=== PATIENT | male | born 1965 | race Caucasian/White ===

== ENCOUNTER 2023-11-05 13:18 | Outpatient (CLI) | payer OTHER, SELFPAY ==
--- NOTE | ~2023-11-05 | XR_ITS ---
EXAM: XR lumbar spine 2-3V DATE: 11/05/2023 14:11 HISTORY: Radiculopathy . COMPARISON: 10/11/2017. FINDINGS: 5 nonrib-bearing lumbar-type vertebral bodies. Pedicles intact. Normal vertebral body alig nment. Vertebral body heights preserved. Mild disc space narrowing at L3-4 through L5-S1. Marginal os teophytosis at all lumbar levels. Moderate facet hypertrophy and sclerosis at all levels. No fracture or dislocation. IMPRESSION: Multilevel mild degenerative disc disease, slightly worse than in the prior study. Modera te multilevel facet arthropathy also demonstrating mild interval progression. Reviewed, dictated and finalized at location K. MOBILE PAINTER IMPRESSION: Multilevel mild degenerative disc disease, slightly worse than in t he prior study. Moderate multilevel facet arthropathy also demonstrating mild i nterval progression.
== END 2023-11-05 13:19 ==
LOC: MICIMG 13:21
PROVIDERS: PCP Physician Assistant; Visit Provider Physician Assistant
DX: M51.36 Other intervertebral disc degeneration, lumbar region (principal); M47.816 Spondylosis without myelopathy or radiculopathy, lumbar region
CPT/HCPCS: 72100

== ENCOUNTER 2024-12-13 13:27 | Outpatient (CLI) | payer OTHER, SELFPAY ==
--- OUTSIDE RECORDS SUMMARY | 2024-12-13 14:03 | XMS_ITS | Clinical Summary ---
Author Organization [facility] Address [address] [place] [address]. [place] [address] [place] [address] Care Team Providers Care Remnants Cutter Name Role Phone Unavailable Primary Care Provider Unavailabl e Social History Tobacco Use Types Packs/Day Years Used Date Smoking Tobacco: Never Assessed Sex and Gender Information Value Date Recorded Sex Assigned at Not on file Legal Sex Male 5:58 PM CDT Gender Identity Not on file Sexual Orientation Not on file Last Filed Vital Signs Vital Sign Reading Time Taken Comments Blood Pressure 112/70 10/12/2017 2:20 PM INSTRUMENT MAKER Pulse 56 04/15/2016 4:06 PM CDT Temperature - - Respiratory Rate - - Oxygen Saturation - - Inhaled Oxygen Concentration - - Weight 64 kg (141 lb) 10/12/2017 2:20 PM INSTRUMENT MAKER Height 170.2 cm (5' 7 ) 10/12/2017 2:20 PM INSTRUMENT MAKER Body Mass Index 22.08 10/12/2017 2:20 PM INSTRUMENT MAKER Plan of Treatment Health Maintenance Due Date Last Done Comments Colorectal Cancer Screening Colonoscopy (10 Years) 1967 Annual Physical 1970 Hepatitis C 1985 Hepatitis B Vaccines (1 of 3 - 19+ 3-dose series) 1986 Zoster Vaccines (1 of 2) 2017 COVID-19 Vaccine (2023-2 5 season) 2024 Influenza Adult (#1) 2024 09/21/2008 DTaP, Tdap and Td Vaccines ( 2 - Td or Tdap) 04/15/2026 04/15/2016, 12/19/2005 Meningococcal B Vaccine Aged Out No l onger eligible based on patient's age to complete this topic Meningococcal Vaccine Aged Out No wm jaymie eligible based on patient's age to complete this topic Pneumococcal Vaccine: Pediatrics (0 to 5 Years) and At-Risk Patients (6 to 64 Years) Aged Out No longer eligible b ased on patient's age to complete this topic RSV Immunizations Under 20 Months Aged Out No longer eligible b ased on patient's age to complete this topic
--- OUTSIDE RECORDS SUMMARY | 2024-12-13 14:03 | XMS_ITS | Data Portability ---
Author Organization DIANE EDMUNDOAshu Cannon Address [address] [facility] [place] [address] Care Team Providers Care Senior Energy Market Coordinator Name Role Phone DIANA BOYD Primary Care Provider Unavailab le Assessment No assessment recorded. Plan of Treatment Reminders Order Date Submit Date Provider Last Modified By Organization Details Last Modified Time Details Appointments None recorded. Lab [facility], total, serum or plasma [email or web address], [address], [place], [address], 5 16:49:52 testostero ne, total, serum 2023 [facility]24 [email or web address], [address], [place], [address], 5 16:49:52 TSH + free T4, serum 2023 024 [email or web address], [address], [place], [address], 5 16:49:53 CBC w/ auto diff 2023 024 [email or web address], [address], [place], [address], 5 16:49:53 CMP, serum or plasma 2023 024 [email or web address], [address], [place], [address], 5 16:49:53 lipid panel, serum 2023 [email or web address], [address], [place], [address], 5 16:49:52 HbA1c (hemoglobi n A1c), blood 2023 024 [email or web address], [address], [place], [address], 5 16:49:52 Referral None recorded. Procedures nerve conduction study/EMG, upper extremity (PROC) 2023 [facility] (Cardiology [facility]), [address] [place] [address], [place], [address], 14:00:51 Surgeries None recorded. Imaging None recorded. Medication Orders tadalafil 20 mg tablet 2023 [facility], [address] [place] [address], [address], 13:24:17 Patient TargetsNo targets recorded. Patient InstructionsNo instructions recorded. Reason for Referral None Reported. Problems Name Problem SNOMED Code Status Onset Date Resolution Date Notes Provider Name and Address Organization Details Recorded Time Body mass index 20-24 - normal 474616369 Active 2023 Madison Rosado MA null, [place] - [place] 4 12:23:33 Long-term drug therapy Active 2023 RYLAND Coburn Attn: Patrick church,[address] [facility], [place], [address], [place] - [facility] 4 13:24:08 Bilateral elbow joint pain 1800989412610 9103 Active 2023 RYLAND Coburn Attn: Patrick g,[address] [facility], [place], [address], [facility] - [facility] 4 13:24:11 Erectile dysfunction 706967162 Active 2023 RYLAND Coburn Attn: Patrick church,[address] [facility], [place], [address], [facility] - [facility] 21:08:10 Bilateral pain in upper arms 2247000315235 9107 Active 2023 RYLAND Coburn Attn: Patrick church,[address] [facility], [place], [address], [facility] - [facility] 21:08:51 Problem Notes None recorded. Medical Equipment None Reported. Allergies No known drug allergies Medications Name Sig Start Date Stop Date Status Note LastModified by Organization Details LastModified Time tadalafil 20 mg tablet Take 1 tablet every day by oral route as directed . 024 active Not Available Not Available Not Avai lable Vitals Date Recorded Body weight Provider Name an d Address Organization Details Last Updated DateTime 09/19/2024 27553.08 g Madison Rosado MA [facility] 2023 12:21:08 Date Recorded Respiratory rate Provider Name a nd Address Organization Details Last Updated DateTime 09/19/2024 20 /min MARS Baugh [facility] 09/19/2024 12:22:11 Date Recorded Body mass index (BMI) Body height Provider Name and Address Organization Details Last Updated DateTime 09/19/2024 23 kg/m2 170.18 cm Madison Rosado MA MD Dimitris [facility] 09/19/2024 12:22:12 Date Recorded Oxygen saturation Oxygen saturation in Arterial blood by Pulse oximetry Provider Name and Address Organization Details Last Updated DateTime 09/19/2024 100 % 100 % MARS Baugh [facility] 09/19/2024 12:23:49 Date Recorded Heart rate Provider Name an d Address Organization Details Last Updated DateTime 09/19/2024 67 /min MARS Baugh [facility] 2023 12:23:51 Date Recorded Systolic blood pressure Diastolic blood pressure Provider Name and Address Organization Details Last Updated DateTime 09/19/2024 126 mm[Hg] 82 mm[Hg] Madison Rosado MA MD Dimitris [facility] 09/19/2024 12:25:15 Date Recorded Systolic blood pressure Diastolic blood pressure Provider Name and Address Organization Details Last Updated DateTime 09/19/2024 110 mm[Hg] 80 mm[Hg] RYLAND Coburn Attn: Accounting,[address] [facility], [place], [address], [facility] 09/19/2024 13:18:30 Social History Question Answer Notes LastModified by Organizat ion Details LastModified Time Tobacco Smoking Status Never Smoker Madison Rosado MA null, [facility] 09/19/2024 13:53:23 Do You Have An Advance Directive? Yes Will Information n ot available 09/19/2024 What Is Your Level Of Alcohol Consumption? Occasional Information not available 09/19/2024 Are You Blind Or Do You Have Difficulty Seeing? No Information n ot available 09/19/2024 What Is Your Level Of Caffeine Consumption? Heavy Information not available 09/19/2024 In The 14 Days Before Symptom Onset, Have You Had Close Contact With A Laboratory-confirm ed COVID-19 While That Case Was Ill? No Information n ot available 09/19/2024 In The 14 Days Before Symptom Onset, Have You Had Close Contact With A Person Who Is Under Investigation For COVID-19 While That Person Was Ill? No Information not available 09/19/2024 Have You Been To An Area Known To Be High Risk For COVID-19? No Information not available 09/19/2024 Are You Deaf Or Do You Have Serious Difficulty Hearing? No Information not available 09/19/2024 What Type Of Diet Are You Following? REGULAR Information n ot available 09/19/2024 Are There Any Guns Present In Your Home? No Information not available 09/19/2024 What Was The Date Of Your Most Recent Tobacco Screening? 09/19/2024 Information not available 09/19/2024 Do You Use Your Seat Belt Or Car Seat Routinely? Yes Information not available 09/19/2024 Do You Have Smoke And Carbon Monoxide Detectors In Your Home? Yes Information not available 09/19/2024 Do You Use Any Illicit Or Recreational Drugs? No Information not available 09/19/2024 Do You Use Sunscreen Routinely? No Information not available 09/19/2024 Has Tobacco Cessation Counseling Been Provided? No Information not available 09/19/2024 Do You Or Have You Ever Used Any Other Forms Of Tobacco Or Nicotine? No Information not available 09/19/2024 Sex: Unknown Functional Status Question Answer Note LastModified by Organization D etails LastModified Time Are you able to care for yourself? Yes Information n ot available 09/19/2024 What is your exercise level? None Information not available 09/19/2024 Mental Status None recorded. Family History Nothing Reported. Medical History Condition Response Coronary Artery Disease N Other N High Blood Pressure N Atrial Fibrillation N Thyroid Problems N Kidney or Bladder Problems N Depression N COPD N Blood Clots N GI Problems N Have you had a mammogram in the last yea r? N Skin Problems N Anemia N Heart Attack ([place]) N Anxiety Disorder N Diabetes N Muscle, Joint, or Bone Problems N Seizures/Epilepsy N Have you had a colonoscopy in the last 1 0 years? N Acid Reflux (GERD) N Cancer N Stroke N Asthma N Allergies N Have you had a PSA blood test in the las t year? N High Cholesterol N Hepatitis N Liver Disease N Headaches N Osteoporosis N Heart Failure N Past Encounters Encounter ID Performer Location Encounter Start Date Encounter Closed Date Diagnosis/Indication Diagnosis SNOMED-CT Code Diagnosis ICD10 Code Diagnosis Note [id number] RYLAND Coburn [place] [id number] [facility] [address] [place] [address] 09/19/2024 12:03:48 09/19/2024 13:47:12 Erectile dysfunction 819288250 F52.21 Refill on tadalafil 20 mg as directed. Check total testostero ne level Body mass index 20-24 - normal 188637151 Z68.23 bmi 23 Adult heal th examination 446119529 Z00.01 Annual wellness exam completed. Routine labs ordered fasting. Cholesterol screening 27 0327208 Z13.220 Fasting lipids are due Diabetes m ellitus screening 399238527 Z13.1 Annual diabetes screening ordered Screening for malignant neoplasm of prostate 471827260 Z12.5 Annual PSA lab is due Long-term drug therapy 682571954 Z79.891 Routine CBC, CMP and thyroid function testing ordered Bilateral elbow joint pain 6463152073 3577919 M25.521 M25.522 Check nerve conduction study of the upper extremitie s to evaluate for any cubital tunnel syndrome Bilateral pain in upper arms 0651214116 7722472 M79.621 M79.622 Nerve conduction study as ordered above Health Concerns Section Related Observation LastModified by Organization Detai ls LastModified Time None Recorded Concern Status LastModified by Organization Details LastModified Time None Recorded Advance Directives Directive Y: will Payers Encounter Date Sequence Insurance Name Policy Number Policy Mccarty Covered Member ID Mccarty Member ID Guarantor Name 09/19/2024 1 [facility] [id number] Trey Contreras [id number] Austin Contreras Notes Date Note Type Note Provider Name and Address Organization Details Recorded Time 09/19/20 24 text/htm l Erectile DysfunctionReported bypatient.Notes:Patient is stable on p.r.n. tadalafil 20 mg, no complaintsMusculoskeletal PainReported bypatient.Notes:Patient does report bilateral elbow pain that radiates to his upper arms. Patient is here for his annual wellness exam and lab orders RYLAND Coburn Attn: Accounting,[address] [place], [address], [facility] 10/02/2024 21:09:56
--- NOTE | 2024-12-13 14:30 | NEURO_ITS ---
Impression: # Complains of elbow pain. ? # Normal Nerve Conduction Study. ? # No Carpal Tunnel Syndrome or ulnar neuropathy. ? # Normal needle/EMG exam. ? # MRI of C-spine recommended. ?Nerve Conduction Studies Anti Sensory Summary Table ?Stim Site NR Peak (ms) P-T Amp (?V) Site1 Site2 Delta-P (ms) Dist (cm) Donavon (m/s) Left Median Anti Sensory (2-3nd Digit) Wrist ? 3.1 49.0 Wrist 2-3nd Digit 3.1 14.0 45 Wrist ? 3.1 33.8 Wrist 2-3nd Digit 3.1 14.0 45 Right Median Anti Sensory (2-3nd Digit) Wrist ? 3.3 31.5 Wrist 2-3nd Digit 3.3 14.0 42 Wrist ? 3.2 54.6 Wrist 2-3nd Digit 3.3 14.0 42 Left Radial Anti Sensory (Base 1st Digit) Wrist ? 2.2 32.4 Wrist Base 1st Digit 2.2 0.0 Right Radial Anti Sensory (Base 1st Digit) Wrist ? 2.7 11.7 Wrist Base 1st Digit 2.7 0.0 Left Ulnar Anti Sensory (5th Digit) Wrist ? 3.1 31.9 Wrist 5th Digit 3.1 14.0 45 Right Ulnar Anti Sensory (5th Digit) Wrist ? 3.3 17.7 Wrist 5th Digit 3.3 14.0 42 Motor Summary Table ?Stim Site NR Onset (ms) O-P Amp (mV) Site1 Site2 Delta-0 (ms) Dist (cm) Donavon (m/s) Left Median Motor (Abd Poll Brev) Wrist ? 3.0 6.2 Elbow Wrist 5.2 30.0 58 Elbow ? 8.2 5.3 Right Median Motor (Abd Poll Brev) Wrist ? 3.1 5.5 Elbow Wrist 5.1 29.0 57 Elbow ? 8.2 5.0 Left Ulnar Motor (Abd Dig Minimi) Wrist ? 2.5 6.0 A Elbow Wrist 5.4 31.0 57 A Elbow ? 7.9 5.1 Right Ulnar Motor (Abd Dig Minimi) Wrist ? 3.1 3.6 A Elbow Wrist 5.1 29.0 57 A Elbow ? 8.2 3.2 F Wave Studies ?NR F-Lat (ms) L-R F-Lat (ms) Left Median (Mrkrs) (Abd Poll Brev) ? 28.41 0.26 Right Median (Mrkrs) (Abd Poll Brev) ? 28.66 0.26 Left Ulnar (Mrkrs) (Abd Dig Min) ? 28.17 1.30 Right Ulnar (Mrkrs) (Abd Dig Min) ? 29.48 1.30 EMG ?Side Muscle Nerve Root Ins Act Fibs Amp Dur Recrt Comment Right 1stDorInt Ulnar C8-T1 Nml Nml Nml Nml Nml Right Ext Indicis Radial (Post Int) C7-8 Nml Nml Nml Nml Nml Right Ext Digitorum Radial (Post Int) C7-8 Nml Nml Nml Nml Nml Right BrachioRad Radial C5-6 Nml Nml Nml Nml Nml Right PronatorTeres Median C6-7 Nml Nml Nml Nml Nml Right Abd Poll Brev Median C8-T1 Nml Nml Nml Nml Nml Right ABD Dig Min Ulnar C8-T1 Nml Nml Nml Nml Nml Left 1stDorInt Ulnar C8-T1 Nml Nml Nml Nml Nml Left Ext Indicis Radial (Post Int) C7-8 Nml Nml Nml Nml Nml Left Ext Digitorum Radial (Post Int) C7-8 Nml Nml Nml Nml Nml Left BrachioRad Radial C5-6 Nml Nml Nml Nml Nml Left PronatorTeres Median C6-7 Nml Nml Nml Nml Nml Left Abd Poll Brev Median C8-T1 Nml Nml Nml Nml Nml Left ABD Dig Min Ulnar C8-T1 Nml Nml Nml Nml Nml MTDD
== END 2024-12-13 13:28 | disposition home or self-care (01) ==
PROVIDERS: PCP Physician Assistant; Visit Provider Physician Assistant
DX: M25.521 Pain in right elbow (principal)
CPT/HCPCS: 95886; 95911